=== PATIENT | female | born 1970 | race Caucasian/White ===

== ENCOUNTER 2017-10-21 05:43 | Inpatient (IN) | payer OTHER ==
[~2017-10-21] VITALS: Ht 157.5 cm; Wt 66.7 kg
[2017-10-21] VITALS (31 sets, daily range): BP systolic 96–164; BP diastolic 64–101
[~2017-10-21 05:43] MED LIST: COUGH MED; LISINOPRIL10 MG PO; METOPROLOL TART25 MG PO; Z-PAK
[2017-10-21] MEDS ORDERED: ASPIRIN 81 MG CHEW TAB PO STA (06:04)
[2017-10-21] MEDS ORDERED: EPTIFIBATIDE 2 MG/1 ML 10ML VIAL IV ONE (06:15)
[2017-10-21] MEDS ORDERED: CLOPIDOGREL BISULFATE 75 MG TAB ONE ×2 (06:15→07:28)
[2017-10-21] MEDS ORDERED: CLOPIDOGREL BISULFATE 75 MG TAB PO ONE ×2 (06:15→12:30)
[2017-10-21 06:22] LABS: BASOPHILS # (AUTO) 0.1 (0.0-0.1); BASOPHILS % 0.9 % (0.0-1.0); EOSINOPHILS # (AUTO) 0.3 (0.0-0.4); EOSINOPHILS % 3.1 % (0.0-6.0); HEMATOCRIT 54.2 % (34.2-44.1); HEMOGLOBIN 18.6 g/dL (12.0-16.0); LYMPHOCYTES # (AUTO) 2.6 (1.0-3.2); MEAN CORPUSCULAR HEMOGLOBIN 30.2 pg (28-32); MEAN CORPUSCULAR HGB CONC 34.3 g/dL (31-35); MONOCYTES # (AUTO) 0.5 (0.2-0.8); MONOCYTES % 5.7 % (4.4-11.3); NEUTROPHILS # (AUTO) 4.7 (2.1-6.9); NEUTROPHILS % 57.9 % (38.7-80.0); PLATELET COUNT 133 x10e3/uL (140-360); RED BLOOD COUNT 6.16 x10e6/uL (3.6-5.1); RED CELL DISTRIBUTION WIDTH 13.4 % (11.7-14.4)
[2017-10-21] MEDS ORDERED: LIDOCAINE HCL 2% LOCAL 20 ML VIAL ONE (06:37)
[2017-10-21] MEDS ORDERED: FENTANYL CITRATE/PF 100MCG/2 ML INJ ONE (06:37)
[2017-10-21] MEDS ORDERED: MIDAZOLAM HCL 2 MG/2 ML VIAL ONE (06:37)
[2017-10-21 06:38] LABS: ALANINE AMINOTRANSFERASE 15 IU/L (0-55); ALBUMIN 3.5 g/dL (3.5-5.0); ALBUMIN/GLOBULIN RATIO 1.1 (0.8-2.0); ALKALINE PHOSPHATASE 62 IU/L (40-150); ANION GAP 13.4 mmol/L (8-16); BLOOD UREA NITROGEN 8 mg/dL (7-26); BUN/CREATININE RATIO 12 (6-25); CALCIUM 9.5 mg/dL (8.4-10.2); CARBON DIOXIDE 28 mmol/L (22-29); CHLORIDE 106 mmol/L (98-107); CREATINE KINASE 49 IU/L (29-168); CREATININE, SERUM 0.69 mg/dL (0.57-1.11); EST GLOMERULAR FILTRATION RATE > 60 ML/MIN (60-); GLUCOSE 127 mg/dL (74-118); POTASSIUM 4.4 mmol/L (3.5-5.1); SODIUM 143 mmol/L (136-145)
[2017-10-21] MEDS ORDERED: IOPAMIDOL 370 MG/ML 200 ML INFUS..BTL INJ ONE ×2 (06:38→07:10)
[2017-10-21] MEDS ORDERED: HEPARIN SOD/SOD CHLORIDE 2,000 ML ONE (06:38)
[2017-10-21] MEDS ORDERED: SODIUM CHLORIDE 0.9% 1000ML 1,000 ML ONE (06:38)
[2017-10-21] MEDS ORDERED: HEPARIN SOD (PORCINE) 1000 UNIT/ML 30ML ONE (06:39)
[2017-10-21] MEDS ORDERED: ONDANSETRON HCL INJ 2 MG/ML VIAL ONE ×2 (06:39→07:15)
[2017-10-21] MEDS ORDERED: NITROGLYCERIN/D5W 200 MCG/ML 250 ML ONE (06:39)
[2017-10-21 06:42] LABS: INR 1.13; PARTIAL THROMBOPLASTIN TIME 24.4 seconds (23.8-35.5); PROTHROMBIN TIME 13.6 seconds (11.9-14.5)
[2017-10-21] MEDS ORDERED: SODIUM CHLORIDE 0.9% 50ML 50 ML ONE (06:59)
[2017-10-21] MEDS ORDERED: BIVALIRUDIN 250 MG/VIAL IV ONE (06:59)
--- NOTE | 2017-10-21 07:06 | Diagnostic Imaging Report ---
EXAMINATION: CHEST SINGLE (PORTABLE) INDICATION: Chest pain COMPARISON: 12/12/2012 FINDINGS: TUBES and LINES: None. LUNGS: Lungs are well inflated. Lungs are clear. There is no evidence of pneumonia or pulmonary edema. PLEURA: No pleural effusion or pneumothorax. HEART AND MEDIASTINUM: The cardiomediastinal silhouette is unremarkable. BONES AND SOFT TISSUES: No acute osseous lesion. Soft tissues are unremarkable. UPPER ABDOMEN: No free air under the diaphragm. IMPRESSION: No acute thoracic abnormality. Signed by: Dr. Robert Palomino M.D. on 10/21/2017 7:03 AM
[2017-10-21] MEDS ORDERED: ATROPINE SULFATE 0.1 MG/ML 10ML SYR ONE (07:10)
[2017-10-21] MEDS ORDERED: EPTIFIBATIDE 10 ML ONE (07:13)
[2017-10-21] MEDS ORDERED: EPTIFIBATIDE 100 ML ONE (07:13)
[2017-10-21] MEDS ORDERED: ASPIRIN 325 MG TAB ONE (07:28)
[2017-10-21] MEDS ORDERED: PANTOPRAZOLE SOD 40 MG TABEC PO SCH (07:30)
[2017-10-21] MEDS ORDERED: METOCLOPRAMIDE HCL 10 MG/2ML VIAL ONE (07:48)
[2017-10-21] MEDS ORDERED: METHYLPREDNISOLONE SOD SUCC 125 MG/2ML VIAL ONE (07:56)
[2017-10-21] MEDS ORDERED: ONDANSETRON HCL INJ 2 MG/ML VIAL IV PRN (08:15)
[2017-10-21] MEDS ORDERED: SODIUM CHLORIDE 0.9% IV SCH (08:15)
[2017-10-21] MEDS ORDERED: EPTIFIBATIDE IV SCH (08:15)
[2017-10-21] MEDS: SODIUM CHLORIDE 0.9% 1000ML 1,000 ML IV SCH ×2 (08:15→14:35)
[2017-10-21] MEDS ORDERED: ACETAMINOPHEN 325 MG TAB PO PRN (08:15)
[2017-10-21] MEDS ORDERED: ASPIRIN 325 MG TAB PO SCH (09:00)
[2017-10-21] MEDS: ASPIRIN 81 MG CHEW TAB PO SCH ×2 (09:00→12:53)
[2017-10-21] MEDS ORDERED: CLOPIDOGREL BISULFATE 75 MG TAB PO SCH ×2 (09:00→12:45)
--- NOTE | 2017-10-21 09:20 | Consultation ---
DATE OF CONSULTATION: October 21, 2017 CARDIOLOGY CONSULTATION REASON FOR CONSULTATION: Inferior STEMI. HISTORY OF PRESENT ILLNESS: Ms. Aguirre is a 46-year-old lady with a past medical history of COPD, heavy smoking, started at the age of 13, as well as family history of heart attacks with Mom dying of a heart attack at the age of 62 as well as her dad. She presents to this institution after being awoken from her sleep with severe substernal chest pressure, tightness, heaviness, burning sensation moderate to severe in nature, radiating up her jaw, associated with dyspnea. The patient was brought to the emergency room where she was found to have an acute inferior posterior STEMI on EKG. Cardiac catheterization laboratory was emergently called. Upon cathing, she was found to have a 99% thrombus-laiden mid to distal circumflex artery stenosis and a left-dominant circulation. The patient was successfully revascularized with 2 overlapping drug-eluting stents. Her main issue at the present time is just nausea with reasonably good hemodynamics. PAST MEDICAL HISTORY: COPD, smoker, and prior history of COPD exacerbation. PAST SURGICAL HISTORY: Denies. FAMILY HISTORY: Mother at the age of 62 with a heart attack. Father in his mid-60s, had cancer and had heart problems. SOCIAL HISTORY: She is a smoker, 1 pack per day smoker, started at the age of 13. Denies any alcohol or illicit drug use. ALLERGIES: NO KNOWN DRUG ALLERGIES. HOME MEDICATIONS: Does not take any on a regular basis. REVIEW OF SYSTEMS GENERAL: Positive for fatigue and malaise. Denies any fever or chills. HEENT: Positive for nasal stuffiness, postnasal drip symptoms, and neck pain with the chest heaviness. CARDIOVASCULAR: As per HPI. RESPIRATORY: Positive for shortness of breath and class III exertional dyspnea baseline with exacerbation of dyspnea with the chest pain. GI: Denies any abdominal pain. Positive for GERD. No bright red blood per rectum, melena, hematemesis. : Denies any dysuria, pyuria or hematuria. MUSCULOSKELETAL: Positive for chronic back pain and hip pain with ambulation. No edema. ENDOCRINE: Denies any heat or cold intolerance. NEUROLOGIC: Denies any focal weakness, numbness, tingling, seizures, headache, history of TIA or stroke. OTHER: The remainder of the review of systems is negative or otherwise mentioned. PHYSICAL EXAMINATION VITALS: Height 62 inches, weight 140 pounds, BMI 25.6. Temperature of 98.0, pulse 71, respiratory rate 16, blood pressure 142/79. O2 sat is 97% on room air. GENERAL: This is a well-nourished, well-developed lady, who is currently in no apparent distress. HEENT: Normocephalic and atraumatic. Pupils are equal, round and reactive to light. The extraocular movements are intact. Oropharynx is clear. NECK: No elevation of jugular venous pulsation. Faint carotid bruit on the right. CARDIOVASCULAR: Regular rate and rhythm. Normal S1 and S2. Soft, 2/6, systolic murmur at the left lower sternal border. LUNGS: Scattered wheezing and some crackles at the bases. ABDOMEN: Soft. Nontender. Obese. Normoactive bowel sounds. No hepatosplenomegaly. BACK: No costovertebral angle tenderness. EXTREMITIES: Warm with 1+ bilateral femoral pulses and absent pedal pulses. No edema. NEUROLOGIC: Cranial nerves II through XII are intact. She moves all 4 extremities. LABS: Largely pending. EKG reveals acute inferior posterior STEMI changes. Cardiac catheterization reveals 99% mid to distal circumflex artery stenosis treated with 2 overlapping drug-eluting stents. Left ventricular ejection fraction is 40% with inferior wall hypokinesis. DIAGNOSES 1. Acute inferior posterior ST-elevation myocardial infarction. 2. Acute systolic heart failure. 3. Hypertension. 4. Chronic obstructive pulmonary disease, smoker. 5. Positive family history of coronary artery disease. PLAN/RECOMMENDATIONS 1. Aspirin and Plavix therapy. 2. Integrilin infusion. 3. Eight-hour bed rest today. 4. ICU admission. 5. Telemetry monitoring. 6. Check echo. 7. Beta lexii as tolerated. 8. Statin therapy as tolerated. 9. Will continue to follow this patient. JAVIER NOBLE MD Job#: [id number]
[2017-10-21] MEDS: METOPROLOL TARTRATE 25 MG TAB PO SCH ×2 (09:21→16:38)
--- NOTE | 2017-10-21 10:34 | Operative Report ---
DATE OF PROCEDURE: October 21, 2017 PROCEDURES PERFORMED: 1. Left heart cardiac catheterization with coronary angiography. 2. Left ventriculography. 3. Primary percutaneous coronary intervention with drug-eluting stents placement to the culprit mid to distal circumflex artery stenosis. 4. Vascade closure of the right common femoral arteriotomy. INDICATIONS FOR PROCEDURE: This is a 46-year-old lady with history of hypertension, COPD, smoker, positive family history of coronary artery disease, who presented with acute inferior-posterior STEMI and acute systolic heart failure. DESCRIPTION OF PROCEDURE: After risks, benefits, pros, and cons of today's procedure were explained, the patient agreed to proceed. The patient was brought to cardiac catheterization laboratory where the right groin was prepped and draped in usual sterile fashion. 1% lidocaine solution was used in right groin region. Access to the right femoral artery was obtained, and a 6-[place] short femoral sheath was placed. Selective coronary angiography of the [place] left and right coronary arteries was performed with JL4 and JR4 diagnostic catheters respectively. Angled pigtail catheter was placed in the ventricle for ventriculography and hemodynamic assessment of ventricular filling pressures. After noting 99% mid to distal circumflex artery stenosis with GLENYS-1 flow distally, this was quickly to be the culprit artery. We then gave IV Angiomax bolus as well as Integrilin boluses. Utilizing an XB 3.0 guiding catheter, we selected the left main coronary ostia. Taking 180 cm [place] Flex guidewire, we crossed successfully past the mid circumflex artery stenosis into the large posterolateral marginal branch. We predilated the culprit site with a [employer] Emerge 2.0 x 15 mm balloon up to 10 atmospheres of pressure that we did that x3. We then took a Synergy 2.25 x 32 mm drug-eluting stent, deployed that from the posterolateral marginal branch proximally all the way back into the mid circumflex artery stenosis up to 9 atmospheres of pressure. We then took a Gutierrez 2.25 x 15 mm drug-eluting stent, overlapped the proximal edge, and deployed that up to 12 atmospheres of pressure, treating all the way just distal to a mid marginal bifurcation. We postdilated the stented segment with balloon up to 12 atmospheres of pressure x3. Final angiography revealed 0% residual stenosis, GLENYS-3 flow, and no complications. At the conclusion of the case, femoral angiogram was performed revealing femoral artery stick, and a 6-[place] Vascade closure device was successfully deployed achieving hemostasis. COMPLICATIONS: None. ESTIMATED BLOOD LOSS: Minimal. FINDINGS: 1. Left main is angiographically normal and gives rise to an LAD and circumflex branch. 2. The LAD has a 30% mid stenosis. 3. The left circumflex artery is dominant, gives rise to a large bifurcating mid marginal branch, followed just distal to that branch a 50% stenosis, followed by a mid to distal 99% stenosis with GLENYS-1 flow distally. This left circumflex artery was dominant, gives rise to the left PDA and posterolateral marginal branch. 4. The RCA is small and nondominant. 5. Left ventricular ejection fraction is 40% with inferior wall hypokinesis, end-diastolic pressure is 18 mmHg. There is no significant LV to aortic pullback gradient. INTERVENTION SUMMARY: Successful treatment of the long circumflex artery stenosis with implantation of a Resolute Gutierrez 2.25 x 50 mm, followed by Synergy 2.25 x 32 mm stent going from the mid circumflex artery all the way into the large posterolateral marginal branch, resulting in 0% residual stenosis, GLENYS-3 flow, and no complications. PLAN/RECOMMENDATIONS: 1. Integrilin infusion postprocedure. 2. Patient was reloaded with Plavix, and kind of vomiting her medications prior to the initiation of the case. 3. Integrilin infusion. 4. Aggressive risk factor modification and medical therapy. 5. ICU care and monitoring. Job#: [id number]
[2017-10-21] MEDS: FAMOTIDINE 20 MG TAB PO SCH (16:38)
[2017-10-21] MEDS: ATORVASTATIN 20 MG TAB PO SCH (21:24)
[2017-10-22] VITALS (13 sets, daily range): BP systolic 116–166; BP diastolic 56–92
[2017-10-22] MEDS: SODIUM CHLORIDE 0.9% 1000ML 1,000 ML IV SCH (01:34)
[2017-10-22 05:02] LABS: BASOPHILS % 0.2 % (0.0-1.0); EOSINOPHILS % 0.1 % (0.0-6.0); HEMATOCRIT 44.4 % (34.2-44.1); HEMOGLOBIN 15.6 g/dL (12.0-16.0); LYMPHOCYTES % 14.7 % (18.0-39.1); MEAN CORPUSCULAR HEMOGLOBIN 30.8 pg (28-32); MEAN CORPUSCULAR HGB CONC 35.1 g/dL (31-35); MEAN CORPUSCULAR VOLUME 87.6 fL (81-99); MONOCYTES # (AUTO) 0.5 (0.2-0.8); MONOCYTES % 3.8 % (4.4-11.3); NEUTROPHILS # (AUTO) 10.7 (2.1-6.9); NEUTROPHILS % 80.4 % (38.7-80.0); PLATELET COUNT 129 x10e3/uL (140-360); RED BLOOD COUNT 5.07 x10e6/uL (3.6-5.1); RED CELL DISTRIBUTION WIDTH 13.3 % (11.7-14.4)
[2017-10-22 05:33] LABS: ALANINE AMINOTRANSFERASE 26 IU/L (0-55); ALBUMIN/GLOBULIN RATIO 1.2 (0.8-2.0); ALKALINE PHOSPHATASE 47 IU/L (40-150); ANION GAP 11.1 mmol/L (8-16); BLOOD UREA NITROGEN 10 mg/dL (7-26); BUN/CREATININE RATIO 16 (6-25); CALCIUM 8.9 mg/dL (8.4-10.2); CARBON DIOXIDE 24 mmol/L (22-29); CHLORIDE 108 mmol/L (98-107); CREATININE, SERUM 0.61 mg/dL (0.57-1.11); EST GLOMERULAR FILTRATION RATE > 60 ML/MIN (60-); GLUCOSE 116 mg/dL (74-118); POTASSIUM 4.1 mmol/L (3.5-5.1); SODIUM 139 mmol/L (136-145)
[2017-10-22 06:06] LABS: CHOL/HDL RATIO 3.7 (3.0-3.6)
[2017-10-22] MEDS ORDERED: PANTOPRAZOLE SOD 40 MG TABEC PO SCH (07:30)
[2017-10-22] MEDS: METOPROLOL TARTRATE 25 MG TAB PO SCH (08:00)
[2017-10-22] MEDS: CLOPIDOGREL BISULFATE 75 MG TAB PO SCH (08:00)
[2017-10-22] MEDS: ASPIRIN 81 MG CHEW TAB PO SCH (08:00)
[2017-10-22] MEDS: FAMOTIDINE 20 MG TAB PO SCH ×2 (08:00→17:29)
[2017-10-22] MEDS ORDERED: METOPROLOL TARTRATE 25 MG TAB ONE (11:01)
--- NOTE | 2017-10-22 11:37 | Diagnostic Imaging Report ---
PROCEDURE: A single AP view of the chest. COMPARISON: 10/21/2017 INDICATIONS: SHORTNESS OF BREATH, COUGH FINDINGS: Lines/tubes: None. Lungs: The lungs are well inflated and clear. There is no evidence of pneumonia or pulmonary edema. Pleura: There is no pleural effusion or pneumothorax. Heart and mediastinum: The heart and the mediastinum are unremarkable. Bones: No acute bony abnormality. IMPRESSION: 1. No acute cardiopulmonary disease. Dictated by: Evan Garcia M.D. on 10/22/2017 at 11:41 Electronically approved by: Evan Garcia M.D. on 10/22/2017 at 11:42
[2017-10-22] MEDS: LOSARTAN POTASSIUM 25 MG TAB PO SCH (12:12)
[2017-10-22] MEDS: METOPROLOL TARTRATE 50 MG TAB PO SCH (17:29)
[2017-10-22] MEDS: ATORVASTATIN 20 MG TAB PO SCH (20:24)
[2017-10-23] VITALS (8 sets, daily range): BP systolic 119–170; BP diastolic 67–82
[2017-10-23 04:48] LABS: BACTERIA,URINE FEW /HPF; BILIRUBIN,URINE NEGATIVE (NEGATIVE); CLARITY,URINE CLEAR (CLEAR); COLOR,URINE YELLOW (YELLOW); EPITHELIAL CELLS,URINE FEW /LPF; KETONES,URINE NEGATIVE (NEGATIVE); LEUKOCYTE ESTERASE ,URINE 1+ (NEGATIVE); NITRITE,URINE NEGATIVE (NEGATIVE); PROTEIN,URINE DIPSTICK NEGATIVE (NEGATIVE); RBC,URINE 0-5 /HPF (0-5); URINE UROBILINOGEN 0.2 mg/dL (0.2 - 1)
[2017-10-23 05:32] LABS: BASOPHILS # (AUTO) 0.1 (0.0-0.1); BASOPHILS % 0.8 % (0.0-1.0); EOSINOPHILS # (AUTO) 0.1 (0.0-0.4); EOSINOPHILS % 0.8 % (0.0-6.0); HEMATOCRIT 43.8 % (34.2-44.1); HEMOGLOBIN 14.9 g/dL (12.0-16.0); LYMPHOCYTES # (AUTO) 2.6 (1.0-3.2); LYMPHOCYTES % 32.5 % (18.0-39.1); MEAN CORPUSCULAR HEMOGLOBIN 30.3 pg (28-32); MONOCYTES # (AUTO) 0.4 (0.2-0.8); MONOCYTES % 4.7 % (4.4-11.3); NEUTROPHILS # (AUTO) 4.8 (2.1-6.9); NEUTROPHILS % 61.1 % (38.7-80.0); PLATELET COUNT 112 x10e3/uL (140-360); RED BLOOD COUNT 4.92 x10e6/uL (3.6-5.1); RED CELL DISTRIBUTION WIDTH 13.4 % (11.7-14.4)
[2017-10-23] MEDS: FAMOTIDINE 20 MG TAB PO SCH ×2 (09:00→16:36)
[2017-10-23] MEDS: LOSARTAN POTASSIUM 25 MG TAB PO SCH (09:12)
[2017-10-23] MEDS: METOPROLOL TARTRATE 50 MG TAB PO SCH ×2 (09:12→16:36)
[2017-10-23] MEDS: ASPIRIN 81 MG CHEW TAB PO SCH (09:12)
[2017-10-23] MEDS: CLOPIDOGREL BISULFATE 75 MG TAB PO SCH (09:12)
[2017-10-23] MEDS ORDERED: CLOPIDOGREL75 MG PO (13:16)
[2017-10-23] MEDS ORDERED: ATORVASTATIN CA20 MG PO (13:16)
[2017-10-23] MEDS ORDERED: LOSARTAN POTASS50 MG PO (13:17)
[2017-10-23] MEDS: ATORVASTATIN 20 MG TAB PO SCH (21:38)
[2017-10-24] VITALS: BP 156/69
[2017-10-24 04:00] VITALS: BP 164/77
[2017-10-24] MEDS: FAMOTIDINE 20 MG TAB PO SCH ×2 (08:15→09:34)
[2017-10-24 08:31] VITALS: BP 162/72
[2017-10-24] MEDS: ASPIRIN 81 MG CHEW TAB PO SCH (09:33)
[2017-10-24] MEDS: METOPROLOL TARTRATE 50 MG TAB PO SCH (09:34)
[2017-10-24] MEDS: LOSARTAN POTASSIUM 25 MG TAB PO SCH (09:34)
[2017-10-24] MEDS: CLOPIDOGREL BISULFATE 75 MG TAB PO SCH (09:34)
[2017-10-24] MEDS ORDERED: PEPCID20 MG (10:59)
[2017-10-24] MEDS ORDERED: ASPIRIN CHEW81 MG PO (10:59)
[2017-10-24 13:34] VITALS: BP 162/72
--- NOTE | 2017-10-24 19:02 | Discharge Summary ---
The patient is a 46-year-old female who was admitted for chest pain, and she was found to have acute GISELA inferoposterior [place]. The patient underwent catheterization, and a stent was placed in the long circumflex artery stenosis. The patient has a history of hypertension, acute systolic heart failure, COPD. There is a history of coronary artery disease in the family. The patient is a heavy smoker, and she has been smoking since the age of 13 at least 1 pack per day. Today, the patient is feeling better. No chest pain and no complaints. On exam, she is afebrile. Blood pressure is 162/72, pulse 79, oxygen saturation 100% on room air. HEENT: Normocephalic. Neck: No tenderness. Lungs: Some basal crackles. Abdomen is soft. No pedal edema. The AST was 52, albumin 3. The rest of the chemistry and CBC are unremarkable. IMPRESSION 1. Treated acute inferoposterior ST-elevation myocardial infarction by stent placement in the long circumflex artery, which was stenotic. 2. Chronic obstructive pulmonary disease. 3. Hypertension. 4. History of heavy smoker. The patient is being discharged on Plavix 75 mg today, metoprolol 50 b.i.d., losartan 25 daily, aspirin 81 a day, Pepcid 20 b.i.d., Lipitor 20 a day. The patient was advised to quit smoking. She is supposed to be seen by Dr. Egan in the coming days as an outpatient. Dictated by Dr. Levi Rosales. AMELIA PIERRE M.D. Job#: [id number]
== END 2017-10-24 13:28 | disposition home or self-care (01) | DRG 246 ==
LOC: ER 05:43 → CATH LAB 06:25 → ERHOLD 06:56 → ICU 08:44 → MED/SURG 10-22 16:32
PROVIDERS: ADMIT Internal Medicine; ATTEND Internal Medicine
PROC: 027035Z Dilation of Coronary Artery, One Artery with Two Drug-eluting Intraluminal Devices, Percutaneous Approach (ICD-10-PCS; principal; 2017-10-21)
PROC: 3E033PZ Introduction of Platelet Inhibitor into Peripheral Vein, Percutaneous Approach (ICD-10-PCS; 2017-10-21)
PROC: 4A023N7 Measurement of Cardiac Sampling and Pressure, Left Heart, Percutaneous Approach (ICD-10-PCS; 2017-10-21)
PROC: B2111ZZ Fluoroscopy of Multiple Coronary Arteries using Low Osmolar Contrast (ICD-10-PCS; 2017-10-21)
PROC: B2151ZZ Fluoroscopy of Left Heart using Low Osmolar Contrast (ICD-10-PCS; 2017-10-21)
DX: I21.21 ST elevation (STEMI) myocardial infarction involving left circumflex coronary artery (principal); I50.21 Acute systolic (congestive) heart failure; F17.210 Nicotine dependence, cigarettes, uncomplicated; J44.9 Chronic obstructive pulmonary disease, unspecified; I25.10 Atherosclerotic heart disease of native coronary artery without angina pectoris; R78.5 Finding of other psychotropic drug in blood; K21.9 Gastro-esophageal reflux disease without esophagitis; I11.0 Hypertensive heart disease with heart failure; D72.829 Elevated white blood cell count, unspecified; Z78.1 Physical restraint status; Z82.49 Family history of ischemic heart disease and other diseases of the circulatory system
CPT/HCPCS: 36415; 71045; 80053; 80061; 81001; 82550; 82553; 82948; 84484; 85025; 85610; 85730; 92920; 92928; 93005; 93306; 93458; 96374; 99284; C1766; C1874; J0583; J1327; J1644; J2001; J2250; J2405; J2765; J2930; J7030; Q9967

== ENCOUNTER → 2017-12-10 | Outpatient (CLI) | payer OTHER ==
[~2017-12-10] MED LIST changes: +ASPIRIN CHEW81 MG PO; +ATORVASTATIN CA20 MG PO; +CLOPIDOGREL75 MG PO; +LOSARTAN POTASS50 MG PO; +PEPCID20 MG
--- NOTE | 2017-12-10 17:37 | Diagnostic Imaging Report ---
EXAMINATION: PA and lateral views of the chest. COMPARISON: Single AP chest 10/22/2017 CLINICAL HISTORY: Acute bronchitis DISCUSSION: Lines/tubes: None. Lungs: The lungs are well inflated and clear. There is no evidence of pneumonia or pulmonary edema. Pleura: There is no pleural effusion or pneumothorax. Heart and mediastinum: Cardiomediastinal silhouette is unremarkable. Pulmonary vasculature is normal. Bones and soft tissues: No acute bony abnormalities. Cholecystectomy clips. IMPRESSION: No acute cardiopulmonary abnormalities. Signed by: Dr. Skip Pope M.D. on 12/10/2017 5:33 PM
== END ==
LOC: RAD 16:11
PROVIDERS: ATTEND Family Medicine
DX: J20.9 Acute bronchitis, unspecified (principal)
CPT/HCPCS: 71046

== ENCOUNTER 2018-07-01 10:13 | Emergency (ER) | payer OTHER ==
[~2018-07-01] VITALS: Ht 157.5 cm; Wt 77.1 kg
[2018-07-01 11:01] LABS: INR 0.94; PROTHROMBIN TIME 13.1 seconds (11.9-14.5)
[2018-07-01 11:02] LABS: PARTIAL THROMBOPLASTIN TIME 25.5 seconds (23.8-35.5)
[2018-07-01 11:03] LABS: BASOPHILS # (AUTO) 0.1 (0.0-0.1); BASOPHILS % 0.6 % (0.0-1.0); EOSINOPHILS # (AUTO) 0.2 (0.0-0.4); EOSINOPHILS % 2.2 % (0.0-6.0); HEMATOCRIT 39.5 % (34.2-44.1); HEMOGLOBIN 13.2 g/dL (12.0-16.0); LYMPHOCYTES # (AUTO) 1.9 (1.0-3.2); LYMPHOCYTES % 23.5 % (18.0-39.1); MEAN CORPUSCULAR HEMOGLOBIN 27.4 pg (28-32); MEAN CORPUSCULAR HGB CONC 33.4 g/dL (31-35); MEAN CORPUSCULAR VOLUME 82.1 fL (81-99); MONOCYTES # (AUTO) 0.4 (0.2-0.8); MONOCYTES % 4.4 % (4.4-11.3); NEUTROPHILS # (AUTO) 5.6 (2.1-6.9); NEUTROPHILS % 68.8 % (38.7-80.0); PLATELET COUNT 183 x10e3/uL (140-360); RED BLOOD COUNT 4.81 x10e6/uL (3.6-5.1); RED CELL DISTRIBUTION WIDTH 12.7 % (11.7-14.4)
[2018-07-01 11:12] LABS: ALANINE AMINOTRANSFERASE 22 IU/L (0-55); ALBUMIN 3.5 g/dL (3.5-5.0); ALKALINE PHOSPHATASE 74 IU/L (40-150); ANION GAP 11.2 mmol/L (8-16); BLOOD UREA NITROGEN 9 mg/dL (7-26); BUN/CREATININE RATIO 13 (6-25); CALCIUM 9.6 mg/dL (8.4-10.2); CARBON DIOXIDE 28 mmol/L (22-29); CHLORIDE 107 mmol/L (98-107); CREATINE KINASE 48 IU/L (29-168); CREATININE, SERUM 0.72 mg/dL (0.57-1.11); EST GLOMERULAR FILTRATION RATE > 60 ML/MIN (60-); GLUCOSE 116 mg/dL (74-118); POTASSIUM 4.2 mmol/L (3.5-5.1); SODIUM 142 mmol/L (136-145)
[2018-07-01 11:26] LABS: BILIRUBIN,URINE NEGATIVE (NEGATIVE); CLARITY,URINE SL CLOUDY (CLEAR); COLOR,URINE YELLOW (YELLOW); KETONES,URINE NEGATIVE (NEGATIVE); LEUKOCYTE ESTERASE ,URINE NEGATIVE (NEGATIVE); NITRITE,URINE POSITIVE (NEGATIVE); PROTEIN,URINE DIPSTICK NEGATIVE (NEGATIVE); URINE UROBILINOGEN 0.2 mg/dL (0.2 - 1)
--- NOTE | 2018-07-01 11:29 | Diagnostic Imaging Report ---
EXAMINATION: CHEST SINGLE (PORTABLE) INDICATION: Left-sided weakness. COMPARISON: Chest radiograph 12/10/2017. FINDINGS: TUBES and LINES: None. LUNGS: Lungs are well inflated. Lungs are clear. There is no evidence of pneumonia or pulmonary edema. PLEURA: No pleural effusion or pneumothorax. HEART AND MEDIASTINUM: The cardiomediastinal silhouette is unremarkable. BONES AND SOFT TISSUES: No acute osseous lesion. Soft tissues are unremarkable. UPPER ABDOMEN: No free air under the diaphragm. IMPRESSION: No acute radiographic abnormality. Signed by: Dr. Marcella Sr MD on 07/01/2018 11:26 AM
[2018-07-01 11:31] LABS: THYROID STIMULATING HORMONE 1.334 uIU/mL (0.350-4.940)
[2018-07-01 11:41] LABS: EPITHELIAL CELLS,URINE FEW /LPF; TRANSITIONAL EPI CELLS,URINE RARE
--- NOTE | 2018-07-01 12:31 | Diagnostic Imaging Report ---
Exam: Head CT without contrast History: Left-sided weakness Comparison studies: Head CT 12/12/2012 Technique: Axial images were obtained from the skull base to the vertex. Coronal and sagittal images reconstructed from the axial data. Dose modulation, iterative reconstruction, and/or weight based adjustment of the mA/kV was utilized to reduce the radiation dose to as low as reasonably achievable. Radiation dose: Total DLP: ... mGy*cm. Estimated effective dose: DLP x 0.015 Intravenous contrast: None Findings: Scalp: No abnormalities. Bones: No fractures, blastic or lytic lesions. Brain sulci: Appropriate for age. Ventricles: Normal in size and configuration. No hydrocephalus. Extra-axial spaces: No masses, no fluid collection. Parenchyma: No abnormal densities. No masses, acute hemorrhage, acute or chronic vascular insults. Sellar/suprasellar region: No abnormalities. Craniocervical junction: Patent foramen magnum. No Chiari one malformation. Incidental findings: Mild calcified atherosclerosis in the left intradural vertebral artery. IMPRESSION: 1. No acute intracranial abnormalities. Specifically, no mass, acute hemorrhage or cortical infarct. 2. No changes from the prior head CT of 12/12/2012. Signed by: Dr. German Hensley M.D. on 07/01/2018 12:28 PM
--- NOTE | 2018-07-01 14:09 | Diagnostic Imaging Report ---
History: Left-sided weakness Comparison studies: Same day head CT (07/01/2018 at 10:45 hours) and head CT 12/12/2012. Technique: Sagittal and axial T2 FS, axial DWI, axial T2*GRE, axial T1 FLAIR and axial coronal T2 FLAIR. Intravenous contrast: None Findings: Scalp: Normal in signal. No masses. Bone marrow: Normal in signal intensity. Brain sulci: Appropriate for age. Ventricles: Normal in size. No hydrocephalus. Extra axial spaces: No mass, no fluid collection. Parenchyma: No acute ischemia, hemorrhage or mass. A few scattered small T2 FLAIR hyperintense foci in the deep supratentorial white matter and small T2 FLAIR hyperintense focus in the right arlen are nonspecific but may reflect mild chronic microvascular ischemic changes. Small chronic lacunar infarcts are present in the left cerebellum. Suprasellar region: No abnormalities. Craniocervical junction: Patent foramen magnum. No Chiari malformation. Vessels: Normal flow-voids in the arteries and sinuses. IMPRESSION: 1. No acute ischemia or other acute intracranial abnormalities. 2. Small chronic left cerebellar lacunar infarcts. 3. Mild chronic microvascular ischemic changes. Signed by: Dr. German Hensley M.D. on 07/01/2018 2:06 PM
[2018-07-01 14:37] VITALS: BP 100/54
== END 2018-07-01 15:04 | disposition home or self-care (01) ==
LOC: ER 10:13
DX: R53.1 Weakness (principal); I10 Essential (primary) hypertension; I25.10 Atherosclerotic heart disease of native coronary artery without angina pectoris; E78.5 Hyperlipidemia, unspecified; I73.9 Peripheral vascular disease, unspecified; I25.2 Old myocardial infarction; Z95.5 Presence of coronary angioplasty implant and graft
CPT/HCPCS: 36415; 70450; 70551; 71045; 80053; 81001; 82550; 82553; 83735; 84443; 84484; 85025; 85610; 85730; 93005; 99284

== ENCOUNTER → 2019-05-08 | Outpatient (CLI) | payer OTHER ==
--- NOTE | 2019-05-11 10:42 | Diagnostic Imaging Report ---
#[id number] - MGSCRBIL #BILATERAL DIGITAL SCREENING MAMMOGRAM WITH CAD: 05/08/2019 CLINICAL: Routine screening. Comparison is made to exams dated: 03/03/2017 mammogram and 11/18/2015 mammogram - [facility]. Current study contains 4 films. There are scattered fibroglandular elements in both breasts. Current study was also evaluated with a Computer Aided Detection (CAD) system. There is a benign intramammary node in the left breast. No significant masses, calcifications, or other findings are seen in either breast. IMPRESSION: BENIGN There is no mammographic evidence of malignancy. A 1 year screening mammogram is recommended. The patient will be notified by letter of the results. ZENAIDA DE OLIVEIRA M.D. ct/penrad:05/10/2019 14:50:01 [employer]: Wilma FLORES)(Naomi), [facility] letter sent: Normal Exam Mammogram BI-RADS: 2 Benign
== END ==
LOC: MAMMO 14:59
PROVIDERS: ATTEND Family Medicine
DX: Z12.31 Encounter for screening mammogram for malignant neoplasm of breast (principal)
CPT/HCPCS: 77067

== ENCOUNTER → 2020-06-24 | Outpatient (CLI) | payer OTHER | LOC: MAMMO 10:40 | PROVIDERS: ATTEND Family Medicine | DX: Z12.31 Encounter for screening mammogram for malignant neoplasm of breast (principal) | CPT/HCPCS: 77067 ==